=== PATIENT | male | born 1970 | race African-American/Black ===

== ENCOUNTER 2016-11-17 12:08 | Inpatient (IN) | payer MEDICARE, OTHER ==
[~2016-11-17] VITALS: Ht 170.2 cm; Wt 113.4 kg
[2016-11-17 13:46] LABS: Basophils # (auto) 0 uL; Basophils % (auto) 0.9 % (0.0-2.0); Eosinophils # (auto) 0.1 uL; Eosinophils % (auto) 1.7 % (0.0-7.0); Hematocrit 42.9 % (41.0-53.0); Lymphocytes % (auto) 35.4 % (10.0-50.0); Mean Corpuscular Hemoglobin 32.5 pg (28.0-32.0); Mean Corpuscular Hgb Conc. 32.6 g/dL (32.0-36.0); Mean Corpuscular Volume 99.6 fL (80.0-100.0); Mean Platelet Volume 7.5 fL (7.4-10.4); Monocytes # (auto) 0.5 uL; Monocytes % (auto) 9.6 % (0.0-12.0); Neutrophils % (auto) 52.4 % (37.0-80.0); Platelet Count (auto) 437 10^3/uL (140-450); Red Cell Distribution Width 14.2 % (11.6-16.0); White Blood Cell 5.7 10^3/uL (4.4-10.8)
[2016-11-17 13:59] LABS: INR 1.04 (0.9-1.15); Partial Thromboplastin Time 30.1 sec (22.64-33.71); Prothrombin Time 10.7 sec (9.37-12.3)
[2016-11-17 14:17] LABS: Albumin 3.7 g/dL (3.4-5.0); BUN/Creatinine Ratio 13.1; Bilirubin, Total 0.9 mg/dL (0.2-1.0); Magnesium 2.2 mg/dL (1.6-2.6); Potassium 4.4 mmol/L (3.5-5.1); Total Protein 7.5 g/dL (6.4-8.2)
[2016-11-17] MEDS ORDERED: ACETAMINOPHEN 325 MG TAB PO ONE (17:30)
[2016-11-17] MEDS ORDERED: HYDROcodone-ACET 10/325MG TAB PO ONE (19:00)
[2016-11-17] MEDS: SODIUM CHLORIDE 0.9% 1,000 ML IV SCH (21:05)
[2016-11-17 21:30] VITALS: BP 131/77
[2016-11-17] MEDS ORDERED: ACETAMINOPHEN 325 MG TAB PO PRN (22:45)
[2016-11-17 23:03] VITALS: BP 137/84
[2016-11-18] MEDS: HYDROcodone-ACET 10/325MG TAB PO PRN ×3 (01:31→15:03)
[2016-11-18 05:00] VITALS: BP_SYST 136; BP_SYST 156; BP_DIAS 76; BP_DIAS 93
[2016-11-18] MEDS: SODIUM CHLORIDE 0.9% 1,000 ML IV SCH ×3 (06:01→23:10)
[2016-11-18 06:26] LABS: Basophils # (auto) 0 uL; Basophils % (auto) 0.9 % (0.0-2.0); Eosinophils # (auto) 0.1 uL; Eosinophils % (auto) 2.1 % (0.0-7.0); Hematocrit 41.3 % (41.0-53.0); Hemoglobin 13.5 g/dL (13.5-17.5); Lymphocytes # (auto) 2.4 uL; Lymphocytes % (auto) 46.4 % (10.0-50.0); Mean Corpuscular Hemoglobin 32.2 pg (28.0-32.0); Mean Corpuscular Hgb Conc. 32.6 g/dL (32.0-36.0); Mean Corpuscular Volume 98.7 fL (80.0-100.0); Mean Platelet Volume 7.7 fL (7.4-10.4); Monocytes # (auto) 0.5 uL; Monocytes % (auto) 8.9 % (0.0-12.0); Neutrophils # (auto) 2.1 uL; Neutrophils % (auto) 41.7 % (37.0-80.0); Platelet Count (auto) 430 10^3/uL (140-450); Red Cell Distribution Width 14.1 % (11.6-16.0); White Blood Cell 5.1 10^3/uL (4.4-10.8)
[2016-11-18 07:05] LABS: Albumin 3.3 g/dL (3.4-5.0); BUN/Creatinine Ratio 13.8; Bilirubin, Total 0.9 mg/dL (0.2-1.0); Calcium 8.6 mg/dL (8.5-10.1); Total Protein 6.8 g/dL (6.4-8.2)
[2016-11-18 09:00] VITALS: BP 149/80
[2016-11-18 13:00] VITALS: BP 137/75
[2016-11-18 17:19] VITALS: BP 130/77
[2016-11-18 20:59] VITALS: BP 120/80
[2016-11-19 05:26] VITALS: BP 131/78
[2016-11-19 05:27] VITALS: BP 126/80
[2016-11-19 05:28] VITALS: BP 170/92
[2016-11-19] MEDS: SODIUM CHLORIDE 0.9% 1,000 ML IV SCH (06:14)
[2016-11-19 07:30] VITALS: BP 133/79
[2016-11-19 12:16] VITALS: BP 139/86
[2016-11-19 12:33] VITALS: BP 139/86
== END 2016-11-19 14:06 | disposition home or self-care (01) | DRG 312 ==
LOC: ER 12:19 → OVERFLOW 12:20 → EAST 21:26
PROVIDERS: ADMIT Family Medicine; ATTEND Internal Medicine
DX: R55 Syncope and collapse (principal); J98.11 Atelectasis; S00.03XA Contusion of scalp, initial encounter; E66.9 Obesity, unspecified; F32.9 Major depressive disorder, single episode, unspecified; G89.29 Other chronic pain; F99 Mental disorder, not otherwise specified; M54.9 Dorsalgia, unspecified; W19.XXXA Unspecified fall, initial encounter; Y93.89 Activity, other specified; Y92.89 Other specified places as the place of occurrence of the external cause; Y99.8 Other external cause status; Z82.49 Family history of ischemic heart disease and other diseases of the circulatory system; Z91.19 Patient's noncompliance with other medical treatment and regimen; Z68.39 Body mass index [BMI] 39.0-39.9, adult
CPT/HCPCS: 36415; 70450; 71010; 80053; 83735; 85025; 85049; 85610; 85730; 93005